=== PATIENT | male | born 1985 | race Caucasian/White ===

== ENCOUNTER 2016-10-07 09:15 | Emergency (ER) | payer BC ==
[~2016-10-07] VITALS: Ht 180.3 cm; Wt 63.5 kg
[2016-10-07] MEDS ORDERED: KETOROLAC 30 MG/1 ML ONE (10:23)
[2016-10-07] MEDS ORDERED: KETOROLAC 30 MG/1 ML IM ONE (10:30)
[2016-10-07 11:05] LABS: BLOOD UREA NITROGEN 14 mg/dL (7-18)
[2016-10-07 12:05] VITALS: BP 111/65
== END 2016-10-07 12:08 | disposition home or self-care (01) ==
LOC: ED 11:37
DX: S39.012A Strain of muscle, fascia and tendon of lower back, initial encounter (principal); X58.XXXA Exposure to other specified factors, initial encounter; Y93.89 Activity, other specified; Y92.89 Other specified places as the place of occurrence of the external cause; Y99.8 Other external cause status
CPT/HCPCS: 36415; 74000; 80048; 81003; 82040; 85025; 96372; 99285; J1885

== ENCOUNTER 2017-11-20 16:48 | Emergency (ER) | payer MEDICAID, OTHER ==
[~2017-11-20] VITALS: Ht 180.3 cm; Wt 70.0 kg
[2017-11-20] MEDS ORDERED: DULO20CA45 PO (17:02)
[2017-11-20] MEDS ORDERED: ZOLP10TA5 PO (17:02)
[2017-11-20] MEDS ORDERED: FLUT9.9S NAS (17:02)
[2017-11-20] MEDS ORDERED: DULO30CA2 PO (17:02)
[2017-11-20] MEDS ORDERED: KETOROLAC 30 MG/1 ML IM ONE (17:30)
[2017-11-20] MEDS ORDERED: KETOROLAC 30 MG/1 ML ONE (17:49)
[2017-11-20 18:16] LABS: TROPONIN I < 0.015 ng/mL (0.000-0.045)
[2017-11-20 18:18] VITALS: BP 115/74
== END 2017-11-20 18:50 | disposition home or self-care (01) ==
LOC: ED 18:40
DX: R07.89 Other chest pain (principal); J20.8 Acute bronchitis due to other specified organisms; B97.89 Other viral agents as the cause of diseases classified elsewhere
CPT/HCPCS: 36415; 71046; 84484; 85379; 93005; 99285

== ENCOUNTER 2018-04-16 11:06 | Emergency (ER) | payer MEDICAID ==
[~2018-04-16] VITALS: Ht 180.3 cm; Wt 72.1 kg
[~2018-04-16 11:06] MED LIST: DULO20CA45 PO; DULO30CA2 PO; FLUT9.9S NAS; ZOLP10TA5 PO
[2018-04-16 12:32] LABS: MICROSCOPIC NOT IND
[2018-04-16 12:40] LABS: CULTURE INDICATED? NO
[2018-04-16] MEDS ORDERED: MAALOX/HYOSCYAMINE/LIDOCAINE 45 ML BTL ONE (13:38)
[2018-04-16] MEDS ORDERED: SODIUM CHLORIDE FLUSH 10ML SYR IVF ONE (14:00)
[2018-04-16] MEDS ORDERED: MAALOX/HYOSCYAMINE/LIDOCAINE 45 ML BTL PO ONE (14:00)
[2018-04-16 14:07] LABS: BASOPHILS # (AUTO) 0.08 x10^3/uL (0-0.1); BASOPHILS % (AUTO) 1 % (0-1); EOSINOPHILS % (AUTO) 4 % (1-7); LYMPHOCYTES # (AUTO) 3.27 x10^3/uL (1-3.4); LYMPHOCYTES % (AUTO) 43 % (22-44); MD NO; MEAN CORPUSCULAR HEMOGLOBIN 31.8 pg (27.5-34.5); MEAN CORPUSCULAR HGB CONC 34.9 g/dL (33.2-36.2); MEAN CORPUSCULAR VOLUME 91.1 fL (81-97); MEAN PLATELET VOLUME 7.7 fL (7.4-10.4); MONOCYTES # (AUTO) 0.66 x10^3/uL (0.2-0.8); MONOCYTES % (AUTO) 9 % (2-9); NEUTROPHILS # (AUTO) 3.34 x10^3/uL (1.8-6.8); NEUTROPHILS % (AUTO) 44 % (42-75); PLATELET COUNT 258 x10^3/uL (130-400); RED BLOOD COUNT 5.16 x10^6/uL (4.38-5.82); RED CELL DISTRIBUTION WIDTH 12.7 % (9.4-14.8)
[2018-04-16 14:17] LABS: ALBUMIN 3.4 g/dL (3.4-5.0); ANION GAP 8 mmol/L (5-15); CALCIUM 8.4 mg/dL (8.5-10.1); CHLORIDE 110 mmol/L (98-107)
[2018-04-16 14:20] LABS: ALANINE AMINOTRANSFERASE 25 U/L (12-78); ALKALINE PHOSPHATASE 86 U/L (45-117); BILIRUBIN,TOTAL 0.4 mg/dL (0.2-1.0); CREATININE 1.23 mg/dL (0.7-1.3); TOTAL PROTEIN 6.6 g/dL (6.4-8.2)
[2018-04-16 14:40] VITALS: BP 98/70
[2018-04-16] MEDS ORDERED: OMNIPAQUE 350 MG/ML, 100ML BOTTLE ONE (14:50)
[2018-04-16] MEDS ORDERED: KETOROLAC 30 MG/1 ML IM ONE (15:00)
[2018-04-16] MEDS ORDERED: KETOROLAC 30 MG/1 ML ONE (15:04)
== END 2018-04-16 15:33 | disposition home or self-care (01) ==
LOC: ED 13:57
DX: K63.89 Other specified diseases of intestine (principal); R10.33 Periumbilical pain; F32.9 Major depressive disorder, single episode, unspecified; J45.909 Unspecified asthma, uncomplicated
CPT/HCPCS: 36415; 74177; 76870; 80053; 81003; 83690; 85025; 87491; 87591; 93975; 96372; 99284; J1885; Q9967

== ENCOUNTER 2018-06-22 10:27 | Emergency (ER) | payer MEDICAID, OTHER ==
[~2018-06-22] VITALS: Ht 180.3 cm; Wt 67.6 kg
[2018-06-22 10:56] VITALS: BP 113/69
[2018-06-22] MEDS ORDERED: HYDROcodone/APAP 5/325 TABLET PO ONE (12:00)
[2018-06-22] MEDS ORDERED: DIAZEPAM 5 MG TABLET PO ONE (12:00)
[2018-06-22] MEDS ORDERED: KETOROLAC 30 MG/1 ML IM ONE (12:00)
[2018-06-22] MEDS ORDERED: DIAZEPAM 5 MG TABLET ONE (12:06)
[2018-06-22] MEDS ORDERED: KETOROLAC 30 MG/1 ML ONE (12:07)
[2018-06-22] MEDS ORDERED: HYDROcodone/APAP 5/325 TABLET ONE (12:07)
== END 2018-06-22 13:30 | disposition home or self-care (01) ==
LOC: ED 13:15
DX: M54.2 Cervicalgia (principal); M25.512 Pain in left shoulder; M25.511 Pain in right shoulder; M54.6 Pain in thoracic spine; F32.9 Major depressive disorder, single episode, unspecified; J45.909 Unspecified asthma, uncomplicated
CPT/HCPCS: 72050; 72072; 73030; 96372; 99283; J1885